=== PATIENT | male | born 1985 | race Caucasian/White ===

== ENCOUNTER 2024-07-30 08:26 | Inpatient (IN) | payer OTHER ==
--- NOTE | 2024-07-30 08:36 | ED ---
General Adult HPI - General Stated complaint: Seizure Time Seen by Provider: 07/30/24 08:30 Source: patient, EMS, RN notes reviewed Mode of arrival: EMS Limitations: no limitations - History of Present Illness Initial comments: 39-year-old male presents emergency department via EMS with chief complaint of a seizure. Patient is known alcoholic he drinks 2 to 3/5/day per patient states that he has had seizures in the past typically when he has not drank he states he drank too fast yesterday states he still feels like he is withdrawing currently. He had a witnessed seizure by friend at home patient does state that he believes he struck his head on a coffee table. Patient denies any lacerations he has pain in the left side of his face. Patient denies any current medications he does admit to nausea and upset stomach, mild abdominal pain. Denies chest pain or shortness of breath. Patient reportedly had 2- minute long seizure tonic-clonic and was postictal upon EMS arrival - Related Data Allergies Allergy/AdvReac Type Severity Reaction Status Date / Time No Known Allergies Allergy Verified 07/30/24 08:35 Review of Systems ROS Statement: Those systems with pertinent positive or pertinent negative responses have been documented in the HPI. ROS Other: All systems not noted in ROS Statement are negative. General Exam Limitations: no limitations General appearance: alert, in no apparent distress Head exam: Present: atraumatic, normocephalic, normal inspection Eye exam: Present: normal appearance, PERRL, EOMI. Absent: scleral icterus, conjunctival injection, periorbital swelling ENT exam: Present: mucous membranes moist, TM's normal bilaterally, normal external ear exam, other (Mild left facial tenderness and swelling noted). Absent: normal oropharynx (Condition) Neck exam: Present: normal inspection, full ROM. Absent: tenderness, meningismus, lymphadenopathy Respiratory exam: Present: normal lung sounds bilaterally. Absent: respiratory distress, wheezes, rales, rhonchi, stridor Cardiovascular Exam: Present: regular rate, normal rhythm, normal heart sounds. Absent: systolic murmur, diastolic murmur, rubs, gallop, clicks GI/Abdominal exam: Present: soft, normal bowel sounds. Absent: distended, tenderness, guarding, rebound, rigid Neurological exam: Present: alert, oriented X3, CN II-XII intact, reflexes normal. Absent: motor sensory deficit Skin exam: Present: warm, dry, intact, normal color. Absent: rash Course Vital Signs 07/30/24 07/30/24 07/30/24 08:36 09:35 11:02 Temperature 99 F Pulse Rate 101 H 116 H 112 H Respiratory 18 18 16 Rate Blood Pressure 163/120 164/118 155/136 O2 Sat by Pulse 97 97 96 Oximetry Medical Decision Making - Medical Decision Making Was pt. sent in by a medical professional or institution (, PA, LOCATION WORKER, urgent care, hospital, or group home...) When possible be specific @ -No Did you speak to anyone other than the patient for history (EMS, parent, family, police, friend...)? What history was obtained from this source @ -No Did you review nursing and triage notes (agree or disagree)? Why? @ -I reviewed and agree with nursing and triage notes Were old charts reviewed (outside hosp., previous admission, EMS record, old EKG, old radiological studies, urgent care reports/EKG's, group home records)? Report findings @ -No old charts were reviewed Differential Diagnosis (chest pain, altered mental status, abdominal pain women, abdominal pain men, vaginal bleeding, weakness, fever, dyspnea, syncope, headache, dizziness, GI bleed, back pain, seizure, CVA, palpatations, mental health, musculoskeletal)? @ -Differential Seizure: Recurrent seizure disorder, febrile seizure, alcohol withdrawal, stimulants, meningitis, encephalitis, intercranial hemorrhage, intracranial tumor, stroke, eclampsia, thyrotoxicosis, hypocalcemia, hyponatremia, hypernatremia, hypomagn esemia, psychogenic, this is not meant to be an all-inclusive list. EKG interpreted by me (3pts min.). @ -As above X-rays interpreted by me (1pt min.). @ -None done CT interpreted by me (1pt min.). @ -CT brain, C-spine showing no acute intracranial hemorrhage, mass effect or cervical fracture Neck CT facial bones soft tissue swelling no acute fracture U/S interpreted by me (1pt. min.). @ -None done What testing was considered but not performed or refused? (CT, X-rays, U/S, labs)? Why? @ -None What meds were considered but not given or refused? Why? @ -None Did you discuss the management of the patient with other professionals (professionals i.e. , PA, LOCATION WORKER, lab, RT, psych nurse, psychotherapist social worker, application performance engineer, teacher, consular officer, immigration case manager)? Give summary @ -EM for admission Was smoking cessation discussed for >3mins.? @ -No Was critical care preformed (if so, how long)? @ -No Were there social determinants of health that impacted care today? How? (Homelessness, low income, unemployed, alcoholism, drug addiction, transportation, low edu. Level, literacy, decrease access to med. care, fpc, rehab)? @ -No Was there de-escalation of care discussed even if they declined (Discuss DNR or withdrawal of care, Hospice)? DNR status @ -No What co-morbidities impacted this encounter? (DM, HTN, Smoking, COPD, CAD, Cancer, CVA, ARF, Chemo, Hep., AIDS, mental health diagnosis, sleep apnea, morbid obesity)? @ -Alcohol abuse with Was patient admitted / discharged? Hospital course, mention meds given and route, prescriptions, significant lab abnormalities, going to OR and other pertinent info. @ -Admitted patient presented after seizure at home from alcohol withdrawal. Patient's alcohol level 68 patient drinks 2 to 3/5/day patient has received multiple doses of Ativan still tremulous and having withdrawal symptoms. Patient will be admitted Undiagnosed new problem with uncertain prognosis? @ -No Drug Therapy requiring intensive monitoring for toxicity (Heparin, Nitro, Insulin, Cardizem)? @ -No Were any procedures done? @ -No Diagnosis/symptom? @ -Alcohol withdrawal seizure, alcohol abuse Acute, or Chronic, or Acute on Chronic? @ -Acute Uncomplicated (without systemic symptoms) or Complicated (systemic symptoms)? @ -Complicated Side effects of treatment? @ -No Exacerbation, Progression, or Severe Exacerbation? @ -No Poses a threat to life or bodily function? How? (Chest pain, USA, IA, pneumonia, PE, COPD, DKA, ARF, appy, cholecystitis, CVA, Diverticulitis, Homicidal, Suic idal, threat to staff... and all critical care pts) @ -Yes alcohol withdrawal seizure - Lab Data Result diagrams: 07/30/24 08:44 07/30/24 08:44 Lab Results 07/30/24 07/30/24 Range/Units 08:44 08:44 WBC 6.6 (3.8-10.6) k/uL RBC 5.56 (4.30-5.90) m/uL Hgb 16.9 (13.0-17.5) gm/dL Hct 48.4 (39.0-53.0) % MCV 87.1 (80.0-100.0) fL MCH 30.3 (25.0-35.0) pg MCHC 34.8 (31.0-37.0) g/dL RDW 13.7 (11.5-15.5) % Plt Count 276 (150-450) k/uL MPV 7.1 Neutrophils % 67 % Lymphocytes % 23 % Monocytes % 6 % Eosinophils % 2 % Basophils % 1 % Neutrophils # 4.4 (1.3-7.7) k/uL Lymphocytes # 1.5 (1.0-4.8) k/uL Monocytes # 0.4 (0-1.0) k/uL Eosinophils # 0.1 (0-0.7) k/uL Basophils # 0.1 (0-0.2) k/uL Sodium 141 (137-145) mmol/L Potassium 4.0 (3.5-5.1) mmol/L Chloride 106 (98-107) mmol/L Carbon Dioxide 25 (22-30) mmol/L Anion Gap 10 mmol/L BUN 11 (9-20) mg/dL Creatinine 0.82 (0.66-1.25) mg/dL Est GFR (CKD-EPI)AfAm >90 (>60 ml/min/1.73 sqM) Est GFR (CKD-EPI)NonAf >90 (>60 ml/min/1.73 sqM) Glucose 148 H (74-99) mg/dL Calcium 9.8 (8.4-10.2) mg/dL Magnesium 1.8 (1.6-2.3) mg/dL Total Bilirubin 0.7 (0.2-1.3) mg/dL AST 394 H (17-59) U/L ALT 601 H (4-49) U/L Alkaline Phosphatase 101 (38-126) U/L Total Protein 7.8 (6.3-8.2) g/dL Albumin 4.9 (3.5-5.0) g/dL Lipase 61 (23-300) U/L Serum Alcohol 68 mg/dL Disposition Clinical Impression: Alcoholic intoxication, Alcohol withdrawal seizure Disposition: ADMITTED IP TO THIS HOSP Condition: Serious Referrals: None,Stated [Primary Care Provider] - 1-2 days Time of Disposition: 11:14
[2024-07-30] MEDS: SODIUM CHLORIDE 0.9% 1,000 ML IV STA (08:43)
[2024-07-30] MEDS: ONDANSETRON 4 MG/2 ML VIAL IVP STA ×2 (08:44→10:54)
[2024-07-30] MEDS: LORazepam 2 MG/ML INJ IV STA ×4 (08:44→20:20)
[2024-07-30 09:00] LABS: Basophils # (A) 0.1 k/uL (0-0.2); Basophils % (A) 1 %; Eosinophils # (A) 0.1 k/uL (0-0.7); Eosinophils % (A) 2 %; HCT 48.4 % (39.0-53.0); HGB 16.9 gm/dL (13.0-17.5); Lymphocytes # (A) 1.5 k/uL (1.0-4.8); Lymphocytes % (A) 23 %; MCH 30.3 pg (25.0-35.0); MCHC 34.8 g/dL (31.0-37.0); MCV 87.1 fL (80.0-100.0); Mean Platelet Volume 7.1; Monocytes # (A) 0.4 k/uL (0-1.0); Monocytes % (A) 6 %; Neutrophils # (A) 4.4 k/uL (1.3-7.7); Neutrophils % (A) 67 %; Platelet Count 276 k/uL (150-450); RBC 5.56 m/uL (4.30-5.90); RDW 13.7 % (11.5-15.5); WBC 6.6 k/uL (3.8-10.6)
[2024-07-30 09:06] LABS: ALT 601 U/L (4-49); AST 394 U/L (17-59); African American GFR (CKD) >90 (>60 ml/min/1.73 sqM); Albumin 4.9 g/dL (3.5-5.0); Alcohol 68 mg/dL; Alkaline Phosphatase 101 U/L (38-126); Anion Gap 10 mmol/L; Blood Urea Nitrogen 11 mg/dL (9-20); Calcium 9.8 mg/dL (8.4-10.2); Carbon Dioxide 25 mmol/L (22-30); Chloride 106 mmol/L (98-107); Glucose 148 mg/dL (74-99); Lipase 61 U/L (23-300); Magnesium 1.8 mg/dL (1.6-2.3); Non-African American GFR(CKD) >90 (>60 ml/min/1.73 sqM); Sodium 141 mmol/L (137-145); Total Bilirubin 0.7 mg/dL (0.2-1.3); Total Protein 7.8 g/dL (6.3-8.2)
--- NOTE | 2024-07-30 10:15 | CT ---
EXAMINATION TYPE: CT brain paolaine wo con DATE OF EXAM: 07/30/2024 COMPARISON: None HISTORY: TRAUMA/SEIZURE CT DLP: 846.4 mGycm, Automated exposure control for dose reduction was used. CONTRAST: Patient injected with 0 mL of Isovue 300. CT of the brain is performed utilizing 3 mm thick sections through the posterior fossa and 3 mm thick sections through the remaining calvarium. Study is performed within 24 hours of arrival to the hospital. No abnormal hyperdensity is present to suggest an acute intracranial hemorrhage. No mass lesion is evident. No acute infarcts are evident. Ventricles and sulci are appropriate for the patient age. Paranasal sinuses and mastoid air cells within the [id number] are clear. IMPRESSIONS: 1. No acute intracranial process. Follow-up MRI can be performed as clinically indicated. CT cervical spine. COMPARISON: None CT of the cervical spine is performed in the axial plane at 2 mm thick sections. Reconstructed image s in the coronal, and sagittal plane are reviewed on the computer. No acute fractures are evident. Vertebral body alignment is normal. Disc heights are preserved. Vertebral body heights are preserved. No spinal canal stenosis is evident. No neural foraminal stenosis is evident. IMPRESSION: 1. No acute osseous abnormality cervical spine [facility], Workstation: [facility], 07/30/2024 10:13 AM
[2024-07-30] MEDS: KETOROLAC 15 MG/ML 1 ML VIAL IVP STA ×2 (10:54→11:30)
--- NOTE | 2024-07-30 11:08 | CT ---
EXAMINATION TYPE: CT facial bones wo con DATE OF EXAM: 07/30/2024 COMPARISON: None HISTORY: TRAUMA/SEIZURE CT DLP: 408.6 mGycm CONTRAST: 0 mL of Isovue 300 The paranasal sinuses are examined in the axial plane at 2 mm thick sections. Reconstructed images i n the coronal plane were obtained. There is dental amalgam scatter artifact The maxillary sinuses are clear. The ethmoid air cells are clear. The sphenoid sinuses are clear. The frontal sinuses are clear. The septum is evaluated. There is septal deviation to the right. The ostiomeatal units are patent. Mandible and maxilla appear intact. Maxillary spine is intact. Temporomandibular junctions are unrema rkable. Maxillary sinus dugan are intact. Greater wings of the sphenoid are normal. Nasal bones are n ormal. Zygomatic arches are intact. IMPRESSION: 1. No acute fractures. [facility], Workstation: [facility], 07/30/2024 11:05 AM
[2024-07-30] MEDS ORDERED: NALOXONE 0.4 MG/ML 1 ML VIAL IV PRN (11:14)
[2024-07-30] MEDS ORDERED: ONDANSETRON 4 MG/2 ML VIAL IVP PRN (11:14)
[2024-07-30] MEDS: SODIUM CHLORIDE 0.9% 1,000 ML IV SCH (11:33)
[2024-07-30] MEDS: LORazepam 2 MG/ML INJ IV PRN ×3 (13:12→19:47)
[2024-07-30] MEDS: HYDROcodone/APAP 5-325MG 1 EACH TAB PO PRN (13:52)
[2024-07-30] MEDS: chlordiazePOXIDE 25 MG CAP PO SCH (13:53)
[2024-07-30] MEDS ORDERED: TEMAZEPAM 15 MG CAP PO PRN (15:09)
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
--- NOTE | 2024-07-30 15:41 | XR ---
EXAMINATION TYPE: XR chest 1V portable DATE OF EXAM: 07/30/2024 3:35 PM CLINICAL INDICATION: Male, 39 years old with history of chf; [facility] COMPARISON: None TECHNIQUE: XR chest 1V portable Frontal view of the chest. FINDINGS: Lungs/Pleura: There is no evidence of pleural effusion, focal consolidation, or pneumothorax. Pulmonary vascularity: Unremarkable. Heart/mediastinum: Cardiomediastinal silhouette is unremarkable. Musculoskeletal: No acute osseous pathology. IMPRESSION: No acute cardiopulmonary disease/process. [facility], , 07/30/2024 3:39 PM
[2024-07-30] MEDS: cloNIDine HCL 0.1 MG TAB PO SCH (15:49)
[2024-07-30] MEDS: levETIRAcetam 500 MG TAB PO SCH (15:53)
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
[2024-07-30] MEDS: diphenhydrAMINE 50 MG/ML 1 ML VIAL IVP STA (19:49)
[2024-07-30] MEDS: HYDROmorphone 0.5 MG/0.5 ML SYRINGE IVP PRN (19:53)
[2024-07-30] MEDS: DEXMEDETOMIDINE/0.9% NACL(PMX) 400 MCG in EMPTY BAG 1 BAG IV SCH (21:19)
[2024-07-30] MEDS: HEPARIN SODIUM,PORCINE 5,000 UNIT/ML 1 ML VIAL SQ SCH (21:52)
[2024-07-30] MEDS: HALOPERIDOL LACTATE 5 MG/ML 1 ML VIAL IM STA ×2 (22:39)
[2024-07-30 23:24] LABS: Glucose,Whole Blood 111 mg/dL (70-110)
--- NOTE | 2024-07-31 02:22 | HP ---
HISTORY AND PHYSICAL CHIEF COMPLAINT: Seizure and alcohol. HISTORY OF PRESENT ILLNESS: This is a 39-year-old gentleman, who had significant alcohol issues, admitted with seizures. The patient also was complaining of pain in the head and face, but CT scan did not show acute abnormality. There is no history of any fever, rigors, or chills at this time. PAST MEDICAL HISTORY: Reviewed include hypertension, myocardial infarction, and seizure. Rest of the history and rest of the chart is also reviewed. HOME MEDICATIONS: Reviewed, none. ALLERGIES: None. FAMILY HISTORY: No history of heart disease or strokes. SOCIAL HISTORY: History of vaping, alcohol. REVIEW OF SYSTEMS: A 14-point review is negative as mentioned earlier. PHYSICAL EXAMINATION: VITAL SIGNS: Pulse is 109, blood pressure 149/90, respirations 18. CHEST: a few scattered rhonchi. ABDOMEN: Soft, nontender. LEGS: No edema. NERVOUS SYSTEM: Nonfocal. SKIN: No ulcer, rash, or bleeding. JOINTS: No active deforming arthropathy. LABORATORY DATA: Reviewed. ASSESSMENT: 1. Acute alcohol intoxication. 2. Seizure disorder. 3. Acute alcoholic hepatitis. 4. Hypertension. 5. History of myocardial infarction. RECOMMENDATIONS AND DISCUSSION: This is a 39-year-old gentleman, who presented with multiple complex medical issues, we will monitor the patient closely and recommend to continue current medications recommend Neurology consultation. We will initiate Keppra and continue to monitor. Prognosis guarded. Further recommendations to follow. See orders for further details, rehab recommendations. MMODL / IJN: [id number] / MTDD
--- NOTE | 2024-07-31 08:37 | P.PN ---
Subjective Progress Note Date: 07/31/24 Patient is impulsive today, agitated, nursing requesting sitter for patient at bedside. Patient was started on Precedex last night due to increasing Ativan requirement. Apparently patient refused p.o. medication in the form of Librium. Gen: In NAD, non-toxic HEENT: normocephalic, atraumatic, hearing acuity is intant, mucous membranes moist CVS: perfusing all extremities well, no pitting edema, Respiratory: symmetric chest expansion, no accessory muscle use, GI: soft, NTTP, ND, : no suprapubic tenderness, no CVA tenderness MSK/Derm: no rashes, cyanosis Neuro: CN II-XII intact, no motor weakness, Psych: cooperative, euthymic mood, judgment and insight is intact Hospital course: 39-year-old man with a medical history of alcohol abuse disorder with dependence and history of severe alcohol withdrawal complicated by seizures and cardiac arrest presented for alcohol intoxication and impending withdrawal. In the emergency room, patient was afebrile, 165/108, heart rate 105, 95% on room air. CBC was unremarkable. Basic metabolic panel is unremarkable. Liver function tests remarkable for ALT of 601, AST of 394. Serum alcohol level was 68. Lipase was 61. Head/cervical spine CT showed no acute osseous abnormalities. Face CT showed no acute fractures. EKG shows normal sinus rhythm, right axis deviation, S1Q3T3 pattern, good R wave progression. Case was discussed with the emergency room physician and I evaluated this patient in the emergency room, and determined that it would be best to monitor this patient in the intensive care unit given his history of severe alcohol withdrawal. I subsequently discussed this case with the soaker on-call who agreed with my assessment. Patient will be admitted to the intensive care unit for alcohol withdrawal monitoring. Assessment/plan: Alcohol withdrawal syndrome with dependence, seizures Alcohol intoxication -Admitted patient to the intensive care unit on telemetry -CIOH protocol with Ativan as needed -Continue Librium 50 mg 3 times daily -Continue Precedex drip, wean as tolerated -Seizure precautions, aspiration precautions -Cessation counseling were provided post withdrawal -thiamine daily, folic acid daily, multivitamin daily -Clonidine as needed for withdrawal and blood pressure Patient is full code DVT prophylaxis with Heparin every 12 hours Objective - Vital Signs Vital signs: Vital Signs Temp 98.0 F 07/31/24 04:00 Pulse 64 07/31/24 07:00 Resp 21 07/31/24 07:00 BP 113/77 07/31/24 07:00 Pulse Ox 94 L 07/31/24 07:00 FiO2 Intake & Output 07/30/24 07/31/24 07/31/24 18:59 06:59 18:59 Intake Total 75 584.640 75 Output Total 200 Balance 75 384.640 75 Weight 81.647 kg 81.64 kg Intake: Intake, IV Titration 75 584.640 75 Amount Dexmedetomidine/0.9% NaCl 59.640 (Pmx) 400 mcg In Empty Bag 1 bag @ 0.2 MCG/KG/HR 4.082 mls/hr IV .Q24H [facility] Rx#:[id number] Sodium Chloride 0.9% 1, 75 525 75 000 ml @ 75 mls/hr IV . [id number] [facility] Rx#:[id number] Output: Urine 200 - Labs CBC & Chem 7: 07/30/24 08:44 07/30/24 08:44 Labs: Abnormal Lab Results - Last 24 Hours (Table) 07/30/24 07/30/24 Range/Units 08:44 23:22 Glucose 148 H (74-99) mg/dL POC Glucose (mg/dL) 111 H (70-110) mg/dL AST 394 H (17-59) U/L ALT 601 H (4-49) U/L
[2024-07-31] MEDS: THIAMINE 100 MG TAB PO SCH (09:09)
[2024-07-31] MEDS: PANTOPRAZOLE 40 MG/10 ML VIAL IV SCH (09:09)
[2024-07-31] MEDS: MULTIVITAMINS, THERA 1 EACH TAB PO SCH (09:17)
[2024-07-31] MEDS: FOLIC ACID 1 MG TAB PO SCH (09:17)
[2024-07-31] MEDS: HALOPERIDOL LACTATE 5 MG/ML 1 ML VIAL IVP PRN (11:29)
--- NOTE | 2024-07-31 12:02 | P.PN ---
Subjective Progress Note Date: 07/31/24 Principal diagnosis: Alcohol withdrawal. This is a 39-year-old white male known history of alcoholism, drinks about 2 to 3/5/day, patient had earlier today a witnessed alcohol withdrawal induced seizure. Patient had similar seizures in the past, and they usually happen when he does not drink for a few days. Apparently the patient had a witnessed seizure by his friend at home and he believes that he struck his head on a coffee table. No injuries were noted based on the ER workup. Apparently the patient had a 2-minute long seizure with tonic clonic contractions. And when he arrived to the ER he was postictal patient is not a great historian, however considering the presentation, I was asked to admit the patient to the ICU he has been receiving Ativan in the ER with minimal effect, and the decision will be to monitor in the ICU instead of handing on the floor. Labs in the ER were basically unremarkable. He did have elevated liver enzymes with AST of 394 ALT of 601 serum alcohol on presentation was 68 which is toxic. Progress note dated July 31, 2024. This is a 39-year-old male has a history of heavy alcohol abuse. The patient was admitted to the hospital, on July 30, and was transferred to the intensive care unit, on July 30. The patient has a history of alcohol abuse, and possible alcohol withdrawal seizures. He was transferred to the intensive care unit for further monitoring and management. He is seen today in room 256. He is on room air. He is getting saline at 75 cc an hour. He is also getting Precedex at 0.4 mcg/kg/h. We are going to try to transition him to Ativan if possible. In addition, we may have to use Librium, Seroquel, and/or Haldol. No new labs today. The labs from yesterday, have been reviewed. Objective - Vital Signs Vital signs: Vital Signs Temp 96.8 F L 07/31/24 08:00 Pulse 71 07/31/24 10:30 Resp 22 07/31/24 10:30 BP 124/95 07/31/24 11:15 Pulse Ox 97 07/31/24 10:30 FiO2 Intake & Output 07/30/24 07/31/24 07/31/24 18:59 06:59 18:59 Intake Total 75 584.640 650.033 Output Total 200 0 Balance 75 384.640 650.033 Weight 81.647 kg 81.64 kg Intake: IV 225 Sodium Chloride 0.9% 1, 225 000 ml @ 75 mls/hr IV . [id number] [facility] Rx#:[id number] Intake, IV Titration 75 584.640 103.033 Amount Dexmedetomidine/0.9% NaCl 59.640 28.033 (Pmx) 400 mcg In Empty Bag 1 bag @ 0.2 MCG/KG/HR 4.082 mls/hr IV .Q24H [facility] Rx#:[id number] Sodium Chloride 0.9% 1, 75 525 75 000 ml @ 75 mls/hr IV . [id number] [facility] Rx#:[id number] Oral 322 Output: Urine 200 0 Other: Voiding Method Urinal # Voids 1 # Bowel Movements 1 - Exam No acute distress, oriented 3. Currently on room air. HEENT examination is grossly unremarkable. Mucous membranes are moist. No oral lesions. Neck supple. Full range of motion. No adenopathy thyromegaly or neck vein distention. Cardiovascular examination reveals regular rhythm rate. S1-S2 normal. No S3 or S4. No discernible murmur noted. Lungs reveal clear breath sounds. Breath sounds are equal bilaterally. No adventitious lung sounds including wheezes rhonchi or crackles. Abdomen soft bowel sounds are heard. No masses or tenderness. Extremities are intact. No cyanosis clubbing or edema. Skin is without rash or lesion. Neurologic examination is brief but nonfocal. - Labs CBC & Chem 7: 07/30/24 08:44 07/30/24 08:44 Labs: Abnormal Lab Results - Last 24 Hours (Table) 07/30/24 Range/Units 23:22 POC Glucose (mg/dL) 111 H (70-110) mg/dL Assessment and Plan Assessment: Acute alcohol intoxication. Possible alcohol withdrawal seizure. Postictal state. History of alcoholism. Acute alcoholic hepatitis. Plan: Plan dated July 31, 2024. The patient remains critically ill in the intensive care unit, room 256. The patient was admitted with acute alcohol withdrawal, and alcoholic seizures. The patient is on room air. The patient is getting saline at 75 cc an hour. The patient continues on dexmedetomidine 0.4 mcg/kg/h. We may add some additional medication such as Ativan, Haldol, and Seroquel. Labs, x-rays, and medications are reviewed. The patient's overall prognosis remains guarded. We will continue to follow. Time with Patient: Greater than 30
[2024-07-31] MEDS: LORazepam 0.5 MG TAB PO PRN (17:05)
[2024-08-01] MEDS: LORazepam 1 MG TAB PO PRN (04:05)
[2024-08-01 06:03] LABS: Basophils % (A) 1 %; Eosinophils # (A) 0.2 k/uL (0-0.7); Eosinophils % (A) 4 %; HCT 43.1 % (39.0-53.0); Lymphocytes # (A) 1.3 k/uL (1.0-4.8); Lymphocytes % (A) 27 %; MCH 29.5 pg (25.0-35.0); MCHC 32.6 g/dL (31.0-37.0); MCV 90.6 fL (80.0-100.0); Mean Platelet Volume 7.3; Monocytes # (A) 0.3 k/uL (0-1.0); Monocytes % (A) 7 %; Neutrophils # (A) 2.8 k/uL (1.3-7.7); Neutrophils % (A) 59 %; Platelet Count 185 k/uL (150-450); RBC 4.76 m/uL (4.30-5.90); RDW 13.3 % (11.5-15.5); WBC 4.7 k/uL (3.8-10.6)
[2024-08-01 06:13] LABS: African American GFR (CKD) >90 (>60 ml/min/1.73 sqM); Anion Gap 4 mmol/L; Blood Urea Nitrogen 11 mg/dL (9-20); Calcium 8.8 mg/dL (8.4-10.2); Carbon Dioxide 28 mmol/L (22-30); Chloride 105 mmol/L (98-107); Glucose 131 mg/dL (74-99); Magnesium 1.9 mg/dL (1.6-2.3); Non-African American GFR(CKD) >90 (>60 ml/min/1.73 sqM); Potassium 3.8 mmol/L (3.5-5.1); Sodium 137 mmol/L (137-145)
[2024-08-01] MEDS ORDERED: Magnesium Replacement Protocol 1 EACH MISC MISCELLANE PRN (06:29)
[2024-08-01] MEDS ORDERED: Potassium Replacement Protocol 1 EACH MISC MISCELLANE PRN (06:29)
[2024-08-01] MEDS: MAGNESIUM SULFATE-D5W PMX 1 GM in DEXTROSE/WATER 1 100ML.BAG IVPB ONE (06:39)
[2024-08-01] MEDS: POTASSIUM CHLORIDE ER 20 MEQ TAB.ER PO SCH (06:39)
[2024-08-01] MEDS: diphenhydrAMINE 25 MG CAP PO PRN (09:31)
--- NOTE | 2024-08-01 12:01 | P.PN ---
Subjective Progress Note Date: 08/01/24 Patient is doing much better today. ETOH withdrawal controlled on librium, ativan PRN. Pt is stable for step down to floor. Gen: In NAD, non-toxic HEENT: normocephalic, atraumatic, hearing acuity is intant, mucous membranes moist CVS: perfusing all extremities well, no pitting edema, Respiratory: symmetric chest expansion, no accessory muscle use, GI: soft, NTTP, ND, : no suprapubic tenderness, no CVA tenderness MSK/Derm: no rashes, cyanosis Neuro: CN II-XII intact, no motor weakness, Psych: cooperative, euthymic mood, judgment and insight is intact Hospital course: 39-year-old man with a medical history of alcohol abuse disorder with dependence and history of severe alcohol withdrawal complicated by seizures and cardiac arrest presented for alcohol intoxication and impending withdrawal. In the emergency room, patient was afebrile, 165/108, heart rate 105, 95% on room air. CBC was unremarkable. Basic metabolic panel is unremarkable. Liver function tests remarkable for ALT of 601, AST of 394. Serum alcohol level was 68. Lipase was 61. Head/cervical spine CT showed no acute osseous abnormalities. Face CT showed no acute fractures. EKG shows normal sinus rhythm, right axis deviation, S1Q3T3 pattern, good R wave progression. Case was discussed with the emergency room physician and I evaluated this patient in the emergency room, and determined that it would be best to monitor this patient in the intensive care unit given his history of severe alcohol withdrawal. I subsequently discussed this case with the blower operator on-call who agreed with my assessment. Patient will be admitted to the intensive care unit for alcohol withdrawal monitoring. Assessment/plan: Alcohol withdrawal syndrome with dependence, seizures Alcohol intoxication -Admitted patient to the intensive care unit on telemetry -[facility] protocol with Ativan as needed -Continue Librium 50 mg 3 times daily -Precedex off since 07/31 -Seizure precautions, aspiration precautions -Cessation counseling were provided post withdrawal -thiamine daily, folic acid daily, multivitamin daily -Clonidine as needed for withdrawal and blood pressure Patient is full code DVT prophylaxis with Heparin every 12 hours Objective - Vital Signs Vital signs: Vital Signs Temp 97.4 F L 08/01/24 09:00 Pulse 71 08/01/24 09:00 Resp 22 08/01/24 09:00 BP 124/91 08/01/24 09:00 Pulse Ox 95 08/01/24 09:00 FiO2 Intake & Output 07/31/24 08/01/24 08/01/24 18:59 06:59 18:59 Intake Total 1072.577 777 340 Output Total 0 100 0 Balance 1072.577 677 340 Weight 90.6 kg Intake: IV 225 0 Sodium Chloride 0.9% 1, 225 0 000 ml @ 75 mls/hr IV . [id number] [facility] Rx#:[id number] Intake, IV Titration 103.577 Amount Dexmedetomidine/0.9% NaCl 28.577 (Pmx) 400 mcg In Empty Bag 1 bag @ 0.2 MCG/KG/HR 4.082 mls/hr IV .Q24H [facility] Rx#:[id number] Sodium Chloride 0.9% 1, 75 000 ml @ 75 mls/hr IV . [id number] [facility] Rx#:[id number] Oral 744 [id number] 340 Output: Urine 0 100 0 Other: Voiding Method Urinal Urinal # Voids 1 1 # Bowel Movements 1 - Labs CBC & Chem 7: 08/01/24 05:33 08/01/24 05:33 Labs: Abnormal Lab Results - Last 24 Hours (Table) 08/01/24 Range/Units 05:33 Glucose 131 H (74-99) mg/dL
--- NOTE | 2024-08-01 12:39 | P.PN ---
Subjective Progress Note Date: 08/01/24 Principal diagnosis: Alcohol withdrawal. This is a 39-year-old white male known history of alcoholism, drinks about 2 to 3/5/day, patient had earlier today a witnessed alcohol withdrawal induced seizure. Patient had similar seizures in the past, and they usually happen when he does not drink for a few days. Apparently the patient had a witnessed seizure by his friend at home and he believes that he struck his head on a coffee table. No injuries were noted based on the ER workup. Apparently the patient had a 2-minute long seizure with tonic clonic contractions. And when he arrived to the ER he was postictal patient is not a great historian, however considering the presentation, I was asked to admit the patient to the ICU he has been receiving Ativan in the ER with minimal effect, and the decision will be to monitor in the ICU instead of handing on the floor. Labs in the ER were basically unremarkable. He did have elevated liver enzymes with AST of 394 ALT of 601 serum alcohol on presentation was 68 which is toxic. Progress note dated July 31, 2024. This is a 39-year-old male has a history of heavy alcohol abuse. The patient was admitted to the hospital, on July 30, and was transferred to the intensive care unit, on July 30. The patient has a history of alcohol abuse, and possible alcohol withdrawal seizures. He was transferred to the intensive care unit for further monitoring and management. He is seen today in room 256. He is on room air. He is getting saline at 75 cc an hour. He is also getting Precedex at 0.4 mcg/kg/h. We are going to try to transition him to Ativan if possible. In addition, we may have to use Librium, Seroquel, and/or Haldol. No new labs today. The labs from yesterday, have been reviewed. Progress note dated August 01, 2024. 39-year-old male seen today in room 256. He is doing much better. He is on room air. The patient is not receiving any IV fluids. In my opinion, the patient is stable for transfer to the general medical floor. The nurses do agree with this assessment. Current labs include a white count 4.7, hemoglobin 14, hematocrit 43.1, and a normal platelet count. Sodium 137, potassium 3.8, chlorides 105, CO2 28, BUN 11, creatinine 0.79. Glucose 131. Calcium 8.8. Magnesium 1.9. Objective - Vital Signs Vital signs: Vital Signs Temp 97.4 F L 08/01/24 09:00 Pulse 71 08/01/24 09:00 Resp 22 08/01/24 09:00 BP 124/91 08/01/24 09:00 Pulse Ox 95 08/01/24 09:00 FiO2 Intake & Output 07/31/24 08/01/24 08/01/24 18:59 06:59 18:59 Intake Total 1072.577 777 340 Output Total 0 100 0 Balance 1072.577 677 340 Weight 90.6 kg Intake: IV 225 0 Sodium Chloride 0.9% 1, 225 0 000 ml @ 75 mls/hr IV . [id number] [facility] Rx#:[id number] Intake, IV Titration 103.577 Amount Dexmedetomidine/0.9% NaCl 28.577 (Pmx) 400 mcg In Empty Bag 1 bag @ 0.2 MCG/KG/HR 4.082 mls/hr IV .Q24H [facility] Rx#:[id number] Sodium Chloride 0.9% 1, 75 000 ml @ 75 mls/hr IV . [id number] [facility] Rx#:[id number] Oral [id number] Output: Urine 0 100 0 Other: Voiding Method Urinal Urinal # Voids 1 1 # Bowel Movements 1 - Exam No acute distress, oriented 3. Currently on room air. HEENT examination is grossly unremarkable. Mucous membranes are moist. No oral lesions. Neck supple. Full range of motion. No adenopathy thyromegaly or neck vein distention. Cardiovascular examination reveals regular rhythm rate. S1-S2 normal. No S3 or S4. No discernible murmur noted. Lungs reveal clear breath sounds. Breath sounds are equal bilaterally. No adventitious lung sounds including wheezes rhonchi or crackles. Abdomen soft bowel sounds are heard. No masses or tenderness. Extremities are intact. No cyanosis clubbing or edema. Skin is without rash or lesion. Neurologic examination is brief but nonfocal. - Labs CBC & Chem 7: 08/01/24 05:33 08/01/24 05:33 Labs: Abnormal Lab Results - Last 24 Hours (Table) 08/01/24 Range/Units 05:33 Glucose 131 H (74-99) mg/dL Assessment and Plan Assessment: Acute alcohol intoxication. Possible alcohol withdrawal seizure. Postictal state. History of alcoholism. Acute alcoholic hepatitis. Plan: Plan dated July 31, 2024. The patient remains critically ill in the intensive care unit, room 256. The patient was admitted with acute alcohol withdrawal, and alcoholic seizures. The patient is on room air. The patient is getting saline at 75 cc an hour. The patient continues on dexmedetomidine 0.4 mcg/kg/h. We may add some additional medication such as Ativan, Haldol, and Seroquel. Labs, x-rays, and medications are reviewed. The patient's overall prognosis remains guarded. We will continue to follow. Plan dated August 01, 2024. The patient is seen in room 256. He has no specific complaints. He is calm, resting comfortably in bed. He is not receiving any supplemental oxygen. No IV fluids. In my opinion, the patient could be transferred to the general medical floor. All labs, x-rays, and medications are reviewed. Prognosis is guarded. The patient is counseled about the importance of not drinking again. Time with Patient: Less than 30
--- NOTE | 2024-08-02 12:22 | P.PN ---
Subjective Progress Note Date: 08/02/24 Hospital Course: 39-year-old man with a medical history of alcohol abuse disorder with dependence and history of severe alcohol withdrawal complicated by seizures and cardiac arrest presented for alcohol intoxication and impending withdrawal. In the emergency room, patient was afebrile, 165/108, heart rate 105, 95% on room air. CBC was unremarkable. Basic metabolic panel is unremarkable. Liver function tests remarkable for ALT of 601, AST of 394. Serum alcohol level was 68. Lipase was 61. Head/cervical spine CT showed no acute osseous abnormalities. Face CT showed no acute fractures. EKG shows normal sinus rhythm, right axis deviation, S1Q3T3 pattern, good R wave progression. Patient initially admitted to medical ICU, now on regular floors. Continues to have severe alcohol withdrawals. Patient was also potentiated prior to coming to the hospital. Psychiatry has been consulted. Subjective: Patient seen and examined at bedside. Overnight patient was agitated. Pertinent positives and negatives as discussed above, a complete review of systems was performed and all other systems are negative. Vitals Signs Reviewed. General: Nontoxic, no distress, appears at stated age Derm: Warm, dry Head: Atraumatic, normocephalic, symmetric Eyes: EOMI, no lid lag, anicteric sclera Mouth: No lip lesion, mucus membranes moist Cardiovascular: S1S2 reg, no murmur Lungs: CTA bilateral, no rhonchi, no rales, no accessory muscle use Abdominal: Soft, nontender to palpation, no guarding, no appreciable organomegaly Ext: No gross muscle atrophy, no edema, no contractures Neuro: CN II-XI grossly intact, no focal neuro deficits Psych: Alert, oriented, appropriate affect Data Reviewed Today: Pertinent Labs: Magnesium 2 Imaging: No new imaging Assessment and Plan: Patient remains severely ill, needs close monitoring. Severe alcohol withdrawal Alcohol dependence Alcohol intoxication Transaminitis -Discussed management with ICU, continue as needed Ativan -On IV Ativan per CIWA score, monitor for sedation -Discontinue IV Valium scheduled -Continue Librium 50 mg 3 times daily, monitor for sedation -Okay to continue clonidine 0.1 twice daily -On Haldol 8 mg IV every 4 hours as needed -If continues use of Haldol, consider getting another EKG, QT not prolonged on admission -Patient was petitioned, will get psychiatry involved, consulted -Discontinued IV fluids -Thiamine 100 mg daily DVT ppx: Subcu heparin Code status: Full code Anticipated discharge place: Pending clinical course Anticipated discharge time: Pending clinical course Objective - Vital Signs Vital signs: Vital Signs Temp 98.4 F 08/02/24 04:00 Pulse 70 08/02/24 08:15 Resp 18 08/02/24 08:15 BP 117/74 08/02/24 08:15 Pulse Ox 97 08/02/24 08:15 FiO2 Intake & Output 08/01/24 08/02/24 08/02/24 18:59 06:59 18:59 Intake Total 1792 480 540 Output Total 0 Balance 1792 480 540 Weight 76.7 kg Intake: IV 0 Sodium Chloride 0.9% 1, 0 000 ml @ 75 mls/hr IV . [id number] [facility] Rx#:[id number] Oral 1792 480 540 Output: Urine 0 Other: Voiding Method Urinal Urinal Urinal # Voids 1 # Bowel Movements 1 - Labs CBC & Chem 7: 08/01/24 05:33 08/01/24 05:33
[2024-08-02] MEDS: HYDROcodone/APAP 5-325MG 1 EACH TAB PO PRN (13:14)
[2024-08-02] MEDS ORDERED: ACETAMINOPHEN TAB 325 MG TAB PO PRN (13:27)
[2024-08-02] MEDS: chlordiazePOXIDE 25 MG CAP PO STA (14:11)
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
--- NOTE | 2024-08-02 14:27 | P.PN ---
Subjective Progress Note Date: 08/02/24 This is a 39-year-old white male known history of alcoholism, drinks about 2 to 3/5/day, patient had earlier today a witnessed alcohol withdrawal induced seizure. Patient had similar seizures in the past, and they usually happen when he does not drink for a few days. Apparently the patient had a witnessed seizure by his friend at home and he believes that he struck his head on a coffee table. No injuries were noted based on the ER workup. Apparently the patient had a 2-minute long seizure with tonic clonic contractions. And when he arrived to the ER he was postictal patient is not a great historian, however considering the presentation, I was asked to admit the patient to the ICU he has been receiving Ativan in the ER with minimal effect, and the decision will be to monitor in the ICU instead of handing on the floor. Labs in the ER were basically unremarkable. He did have elevated liver enzymes with AST of 394 ALT of 601 serum alcohol on presentation was 68 which is toxic. Progress note dated July 31, 2024. This is a 39-year-old male has a history of heavy alcohol abuse. The patient was admitted to the hospital, on July 30, and was transferred to the intensive care unit, on July 30. The patient has a history of alcohol abuse, and possible alcohol withdrawal seizures. He was transferred to the intensive care unit for further monitoring and management. He is seen today in room 256. He is on room air. He is getting saline at 75 cc an hour. He is also getting Prec edex at 0.4 mcg/kg/h. We are going to try to transition him to Ativan if possible. In addition, we may have to use Librium, Seroquel, and/or Haldol. No new labs today. The labs from yesterday, have been reviewed. Progress note dated August 01, 2024. 39-year-old male seen today in room 256. He is doing much better. He is on room air. The patient is not receiving any IV fluids. In my opinion, the patient is stable for transfer to the general medical floor. The nurses do agree with this assessment. Current labs include a white count 4.7, hemoglobin 14, hematocrit 43.1, and a normal platelet count. Sodium 137, potassium 3.8, chlorides 105, CO2 28, BUN 11, creatinine 0.79. Glucose 131. Calcium 8.8. Magnesium 1.9. The patient is seen today August 02, 2024 in follow-up on the selective care unit. He is currently awake and alert in no acute distress. He is maintaining good O2 saturation in the 90s on room air. He is afebrile. Hemodynamically stable. Magnesium 2.0. He remains on the CIWA protocol. Heparin for DVT prophylaxis. teller head at the bedside. Objective - Vital Signs Vital signs: Vital Signs Temp 98.4 F 08/02/24 04:00 Pulse 74 08/02/24 12:00 Resp 18 08/02/24 12:00 BP 122/72 08/02/24 12:00 Pulse Ox 97 08/02/24 12:00 FiO2 Intake & Output 08/01/24 08/02/24 08/02/24 18:59 06:59 18:59 Intake Total 1792 480 540 Output Total 0 Balance 1792 480 540 Weight 76.7 kg Intake: IV 0 Sodium Chloride 0.9% 1, 0 000 ml @ 75 mls/hr IV . [id number] [facility] Rx#:[id number] Oral 1792 480 540 Output: Urine 0 Other: Voiding Method Urinal Urinal Urinal # Voids 1 # Bowel Movements 1 - Exam GENERAL EXAM: Alert, 39-year-old male, on room air, comfortable in no apparent distress. HEAD: Normocephalic. EYES: Normal reaction of pupils, equal size. NOSE: Clear with pink turbinates. THROAT: No erythema or exudates. NECK: No masses, no JVD. CHEST: No chest wall deformity. LUNGS: Equal air entry with no crackles, wheeze, rhonchi or dullness. CVS: S1 and S2 normal with no audible murmur, regular rhythm. ABDOMEN: No hepatosplenomegaly, normal bowel sounds, no guarding or rigidity. SPINE: No scoliosis or deformity SKIN: No rashes CENTRAL NERVOUS SYSTEM: No focal deficits, tone is normal in all 4 extremities. EXTREMITIES: There is no peripheral edema. No clubbing, no cyanosis. Peripheral pulses are intact. - Labs CBC & Chem 7: 08/01/24 05:33 08/01/24 05:33 Assessment and Plan Assessment: Acute alcohol intoxication Possible alcohol withdrawal seizure Postictal state History of alcoholism Acute alcoholic hepatitis Bipolar disorder Plan: The patient was seen and evaluated Stable and on room air teller head at the bedside Educated regarding smoking cessation Educated regarding alcohol cessation Remains in the CIWA protocol Psychiatric consult appreciated Plan is for inpatient psychiatric treatment I have personally seen and examined the patient, performed the documentation and the assessment and plan as written. Number of minutes spent on the visit: 10.
[2024-08-02] MEDS: ARIPiprazole 5 MG TAB PO SCH (15:45)
[2024-08-02] MEDS: ONDANSETRON 4 MG/2 ML VIAL IVP PRN (17:41)
[2024-08-02] MEDS: HALOPERIDOL LACTATE 5 MG/ML 1 ML VIAL IVP PRN (17:43)
[2024-08-02] MEDS: MIRTAZAPINE 15 MG TAB PO SCH (20:36)
[2024-08-03] MEDS: LORazepam 2 MG/ML INJ IM STA (11:10)
[2024-08-03] MEDS: HALOPERIDOL LACTATE 5 MG/ML 1 ML VIAL IM STA (11:10)
[2024-08-03] MEDS: diphenhydrAMINE 50 MG/ML 1 ML VIAL IM STA (11:10)
[2024-08-03] MEDS ORDERED: MIRTAZAPINE 15 MG TAB PO PRN (14:34)
--- NOTE | 2024-08-03 14:34 | P.PN ---
Progress Note - Text Progress Note Date: 08/03/24 Interval history: Patient was seen today for psychiatric follow-up regarding patient's bipolar d isorder and alcohol withdrawal. Patient took Abilify yesterday however refused at this morning, stating that his daughter was previously on it and did not do well according to patient's nurse. Patient appeared to be mildly drowsy today however continues to be fairly argumentative, minimizing his need to be in the hospital. Continues to focus mainly on discharge. Continues to be fairly impulsive was noted to be aggressive by nursing staff this morning and throwing things. Patient did receive a as needed Haldol earlier today. He apparently was calling the police to come and take him out of the hospital. He continues to be somewhat irritable, argumentative, poor impulse control. Very poor insight into his condition, and his need for treatment. Claims that he slept fairly last night. Denies any suicidal homicidal ideations intent or plan. Denies any auditory or visual hallucinations. MENTAL STATUS EXAM: General Appearance: Patient appears to be short in stature, stated age is alert, impulsive, demanding. Patient appears to have poor hygiene and grooming wearing hospital gown with improving eye contact. Behavior: Impulsive demanding Speech: Patient's speech is fluent and nonpressured. [place] Mood/Affect: Patient reports their mood is "fine", affect is congruent and constricted Suicidality/Homicidality: Patient denies having any suicidal or homicidal ideation intent or plan. Perceptions: Patient denies any visual hallucinations and denies any auditory hallucinations Though content/process: Irrational, illogical at times. Poor decision making. Focused on discharge, minimizing his need for hospitalization and his alcohol use Memory and concentration: AOX2-3, Cannot spell "WORLD" backwards, impulsive Judgment and insight: Poor/impulsive IMPRESSIONS: Bipolar disorder unspecified Alcohol use disorder severe dependence, currently in withdrawal Cannabis use disorder mild Nicotine dependence Nonadherence to psychiatric medication treatment PLAN: -At this time patient DOES meet criteria for inpatient psychiatric admission however as patient is currently withdrawing from etoh and not medically cleared will continue to follow along while he is on the medical floors. -Patient DOES NOT have decision making capacity at this time and is unable to reason through and communicate/appreciate the risks, benefits and alternatives to treatment. -Would recommend the following medication changes/additions: discontinue Remeron and Abilify. Replace with Seroquel 50 mg twice daily for mood stabilization/sleep. Continue with Librium scheduled with a plan to taper down for alcohol withdrawal. Haldol IVP as needed for agitation/aggression -CIWA protocol with PRN Ativan for alcohol withdrawal. Continue to monitor vital signs. -Continue 1:1 sitter for safety and elopement precautions -Cannot leave AMA at this time. Patient sister signed a petition, science writer completed a clinical certificate, both are in patient's chart. -Communicated plan to patient's nurse -patient is a [facility] reisdent there would need to be transferred out to a psychiatric bed in [facility] once he is stabilized medically and detox from etoh. -Will continue to follow along -Please contact with any questions.
[2024-08-03] MEDS: cloNIDine HCL 0.1 MG TAB PO PRN (16:35)
--- NOTE | 2024-08-03 16:47 | P.PN ---
Subjective Progress Note Date: 08/03/24 Hospital course: Patient is a 39-year-old man with a medical history of alcohol abuse disorder with dependence and history of severe alcohol withdrawal complicated by seizures and cardiac arrest presented for alcohol intoxication and impending withdrawal. In the emergency room, patient was afebrile, 165/108, heart rate 105, 95% on room air. CBC was unremarkable. Basic metabolic panel is unremarkable. Liver function tests remarkable for ALT of 601, AST of 394. Serum alcohol level was 68. Lipase was 61. Head/cervical spine CT showed no acute osseous abn ormalities. Face CT showed no acute fractures. EKG shows normal sinus rhythm, right axis deviation, S1Q3T3 pattern, good R wave progression. Patient initially admitted to medical ICU, and has since been transferred to stepdown unit. Continues to have severe alcohol withdrawals. Patient was also petitioned prior to coming to the hospital. Psychiatry has been consulted. Physical exam: Vital signs reviewed and stable. General: Nontoxic, no distress and appears stated age. Derm: Skin warm and dry, normal coloration for ethnicity. Head: Atraumatic, normocephalic and symmetric. Eyes: EOM's intact, no lid lag, and anicteric sclera Mouth: no lip lesions, mucus membranes moist Cardiovascular: regular rate and rhythm with normal S1S2, no murmur, positive posterior tibial pulses bilaterally, and cap refill < 2 seconds. Lungs: Respirations even, regular, and unlabored on room air. Lungs CTA bilaterally, no rhonchi, no rales, no wheezing, and no accessory muscle usage. Abdominal: soft, nontender to palpation, no guarding, no appreciable org anomegaly Ext: ROM intact. No gross muscle atrophy, no edema, no contractures Neuro: Speech clear, face symmetrical and CN II-XII grossly intact with no noted focal neuro deficits Psych: Alert and oriented to place. Aggressive behaviors with agitated and angry affect Assessment and Plan of Care: 08/03/2024 was called back to patient's room at 1045, as patient was agitated and aggressive and threatening to "throw it down" with nursing staff. Patient i n his room and standing in door stating that he is leaving this place and no one is going to stop him. Patient pulled out IV has been refusing medications. Multiple attempts were made at trying to verbally de-escalate the situation. Personally offered to place a new IV in patient so he can have some medication to help calm him down, however patient adamantly refusing and threatening to fight anyone that touches him. Patient states he is leaving and he is currently under petition and CERT. [place] police officers also arrived to bedside at this time as patient personally called police on hospital staff stating that he was being held against his will. Police officers and security at bedside. Orders placed for B-52 consisting of Haldol, Benadryl, and Ativan in attempts to medically calm patient. Patient refused IV access and therefore medications were given intramuscularly. IV access to be reobtained once patient calms down and is no longer aggressive towards staff as patient behaviors places safety risk to patient as well as staff Severe alcohol withdrawal with aggressive behaviors Seizure activity, patient presented with reports of witnessed seizure activity suspect alcohol withdrawal seizure Alcohol dependence Alcohol intoxication upon arrival Transaminitis -Continue monitoring of CIWA scores to continue and patient to be medicated with Ativan 0.5 mg every 4 hours as needed for CIWA score of 4-5, Ativan 1 mg every 4 hours for CIWA score of 6-7, Ativan 2 mg every 3 hours CIWA score of 8-9, and Ativan 2 mg every 2 hours forr CIWA score of 10 or greater. -Security and police at bedside, patient was given a B-52 consisting of Benadryl 50 mg IM, Haldol 5 mg IM, and Ativan 2 mg IM -Continue Librium 50 mg 3 times daily, monitor for sedation -Okay to continue clonidine 0.1 twice daily -On Haldol 5 mg IV every 6 hours as needed for severe agitation or acute psychosis -If continues use of Haldol, consider getting another EKG, QT not prolonged on admission -Patient has Petition and CERT on chart. -Thiamine 100 mg daily Transient headache, suspect complex migraine with reports of bilateral blurry v ision and headache with photophobia. Resolved. -Continue with symptomatic care and pain management. Tylenol 650 mg every 6 hours as needed for pain. Data and imaging reviewed: -Vital signs reviewed. Blood pressure 106/67, heart rate 78, respiratory rate 16, temp 98.1 F, and SpO2 of 96% on room air. -Labs were not drawn this morning as patient adamantly refused. Order placed for repeat labs tomorrow morning. DVT ppx: Subcu heparin Code status: Full code Anticipated discharge place: Pending clinical course Anticipated discharge time: Pending clinical course Patient was seen independently by Nurse Pracitioner. This document was prepared using [employer] dictation software. Please allow for errors in biometric fingerprinting technician, while rare they do occur. .Patient was seen independently by Madi Dave NP. I agree with the assessment and plan as above. Objective - Vital Signs Vital signs: Vital Signs Temp 98.1 F 08/03/24 00:00 Pulse 91 08/03/24 04:00 Resp 16 08/03/24 04:00 BP 118/67 08/03/24 04:00 Pulse Ox 97 08/03/24 04:00 FiO2 Intake & Output 08/02/24 08/03/24 08/03/24 18:59 06:59 18:59 Intake Total 1020 Balance 1020 Weight 88.3 kg Intake: Oral 1020 Other: Voiding Method Urinal Toilet Urinal - Labs CBC & Chem 7: 08/04/24 06:51 08/04/24 06:51
[2024-08-03] MEDS: QUEtiapine 50 MG TAB PO SCH (20:04)
[2024-08-03] MEDS ORDERED: PRAZOSIN 1 MG CAP PO SCH (21:00)
[2024-08-04 07:07] LABS: HGB 13.2 gm/dL (13.0-17.5); MCH 29.7 pg (25.0-35.0); MCHC 32.9 g/dL (31.0-37.0); MCV 90.4 fL (80.0-100.0); Mean Platelet Volume 7.2; Platelet Count 190 k/uL (150-450); RBC 4.42 m/uL (4.30-5.90); RDW 13.5 % (11.5-15.5); WBC 6.4 k/uL (3.8-10.6)
[2024-08-04 07:32] LABS: ALT 289 U/L (4-49); AST 120 U/L (17-59); African American GFR (CKD) >90 (>60 ml/min/1.73 sqM); Albumin 3.6 g/dL (3.5-5.0); Alkaline Phosphatase 110 U/L (38-126); Anion Gap 6 mmol/L; Blood Urea Nitrogen 6 mg/dL (9-20); Calcium 8.7 mg/dL (8.4-10.2); Carbon Dioxide 27 mmol/L (22-30); Chloride 104 mmol/L (98-107); Glucose 166 mg/dL (74-99); Magnesium 1.9 mg/dL (1.6-2.3); Non-African American GFR(CKD) >90 (>60 ml/min/1.73 sqM); Potassium 3.8 mmol/L (3.5-5.1); Sodium 137 mmol/L (137-145); Total Bilirubin 0.3 mg/dL (0.2-1.3); Total Protein 6.2 g/dL (6.3-8.2)
[2024-08-04 11:48] VITALS: BMI 29.5
--- NOTE | 2024-08-04 13:42 | P.PN ---
Subjective Progress Note Date: 08/04/24 Hospital Course: Patient is a 39-year-old man with a medical history of alcohol abuse disorder with dependence and history of severe alcohol withdrawal complicated by seizures and cardiac arrest presented for alcohol intoxication and impending withdrawal. In the emergency room, patient was afebrile, 165/108, heart rate 105, 95% on room air. CBC was unremarkable. Basic metabolic panel is unremarkable. Liver function tests remarkable for ALT of 601, AST of 394. Serum alcohol level was 68. Lipase was 61. Head/cervical spine CT showed no acute osseous abnormalities. Face CT showed no acute fractures. EKG shows normal sinus rhythm, right axis deviation, S1Q3T3 pattern, good R wave progression. Patient initially admitted to medical ICU, and has since been transferred to [facility]. Continues to have severe alcohol withdrawals. Patient was also petitioned prior to coming to the hospital. Psychiatry has been consulted. Psychiatry recommending inpatient psych. Patient is now medically optimized for discharge to inpatient psych. Pending further psych recommendations. Subjective: Patient seen and examined at bedside. No acute events overnight. Sitter at bedside. Pertinent positives and negatives as discussed above, a complete review of systems was performed and all other systems are negative. Vitals Signs Reviewed. General: Nontoxic, no distress, appears at stated age Derm: Warm, dry Head: Atraumatic, normocephalic, symmetric Eyes: EOMI, no lid lag, anicteric sclera Mouth: No lip lesion, mucus membranes moist Cardiovascular: S1S2 reg, no murmur Lungs: CTA bilateral, no rhonchi, no rales, no accessory muscle use Abdominal: Soft, nontender to palpation, no guarding, no appreciable organomegaly Ext: No gross muscle atrophy, no edema, no contractures Neuro: CN II-XI grossly intact, no focal neuro deficits Psych: Alert, oriented, appropriate affect Data Reviewed Today: Pertinent Labs: WBC 6.4, hemoglobin 13.2, creatinine 0.7, total bili 0.3, AST 120, ALT 289 Imaging: No new imaging Assessment and Plan: Severe alcohol withdrawal with aggressive behaviors Seizure activity, patient presented with reports of witnessed seizure activity suspect alcohol withdrawal seizure Alcohol dependence Alcohol intoxication upon arrival Transaminitis -Librium 30 4 times daily, decrease to 30 3 times daily -Continue clonidine 0.1 twice daily, Haldol 5 mg IV every 6 hours as needed for acute agitation -Discontinue oral Keppra -IV Ativan and p.o. Ativan as needed per CIWA score, monitor for sedation -Psychiatry also following, patient also on Seroquel 50 twice daily -Continue thiamine 100 mg daily, folic acid 1 mg daily -Patient is medically optimized for discharge to inpatient psych Transient headache, suspect complex migraine with reports of bilateral blurry vision and headache with photophobia. Resolved. -Continue with symptomatic care and pain management. Tylenol 650 mg every 6 hours as needed for pain. DVT ppx: Subcu heparin Code status: Full code Anticipated discharge place: Inpatient psych Anticipated discharge time: Pending bed availability Objective - Vital Signs Vital signs: Vital Signs Temp 98.2 F 08/04/24 08:00 Pulse 79 08/04/24 08:00 Resp 19 08/04/24 08:00 BP 138/95 08/04/24 08:00 Pulse Ox 97 08/04/24 08:00 FiO2 Intake & Output 08/03/24 08/04/24 08/04/24 18:59 06:59 18:59 Intake Total 360 Balance 360 Weight 88.3 kg Intake: Oral 360 Other: Voiding Method Toilet Toilet Urinal Urinal - Labs CBC & Chem 7: 08/04/24 06:51 08/04/24 06:51 Labs: Abnormal Lab Results - Last 24 Hours (Table) 08/04/24 Range/Units 06:51 BUN 6 L (9-20) mg/dL Glucose 166 H (74-99) mg/dL AST 120 H (17-59) U/L ALT 289 H (4-49) U/L Total Protein 6.2 L (6.3-8.2) g/dL
[2024-08-04 14:30] VITALS: BP 131/81; PULSE 74; RESP 20; TEMP 98
--- NOTE | 2024-08-04 14:49 | P.PN ---
Progress Note - Text Progress Note Date: 08/04/24 Interval history: Patient was seen today for psychiatric follow-up regarding patient's bipolar d isorder and alcohol withdrawal. Patient has been taking his Seroquel. He apparently slept last night. He did not need any more Haldol PRNs for agitation. Patient remains on Librium which was decreased furthermore by his medical doctor. Nurse claims that patient has been doing fairly well today, no issues. Patient was seen today agreeable to speak to copy writer alone in his room. He claims that he is doing much better, he appeared to be less irritable, more goal oriented and organized. He states that he would hope to go home today, claims that he wants to take his alcohol use seriously and wants to get into rehab. He claims that his is here with him. Denies any depression or anxiety at this time, claims that he is tolerating medications fairly well. States that he slept fairly last night denying any problems with his appetite. Denies any suicidal homicidal ideations intent or plan. Denies any auditory or visual hallucinations. Claims that he wants to live for his and also his health. MENTAL STATUS EXAM: General Appearance: Patient appears to be short in stature, stated age is alert, more cooperative today. Patient appears to have improving hygiene and grooming wearing hospital gown with improving eye contact. Behavior: Improving more cooperative today. Speech: Patient's speech is fluent and nonpressured Mood/Affect: Patient reports their mood is "fine", affect is congruent Suicidality/Homicidality: Patient denies having any suicidal or homicidal ideation intent or plan. Perceptions: Patient denies any visual hallucinations and denies any auditory hallucinations Though content/process: Logical, no paranoia or delusions. More future oriented today. Memory and concentration: AOX3, Can spell "WORLD" backwards Judgment and insight: Improving IMPRESSIONS: Bipolar disorder unspecified Alcohol use disorder severe dependence, currently in withdrawal Cannabis use disorder mild Nicotine dependence Nonadherence to psychiatric medication treatment PLAN: -At this time patient DOES NOT meet criteria for inpatient psychiatric admission as patient appears to be more stable today, future oriented, denying any depression or anxiety. States that he is not having any suicidal or homicidal ideations intent or plan denying any auditory visual hallucinations.. -Patient DOES NOT have decision making capacity at this time and is unable to reason through and communicate/appreciate the risks, benefits and alternatives to treatment. -Would recommend the following medication changes/additions: Continue with Seroquel 50 mg twice daily for mood stabilization/sleep. Continue with Librium scheduled with a plan to taper down for alcohol withdrawal. Haldol IVP as needed for agitation/aggression -[facility] protocol with PRN Ativan for alcohol withdrawal. Continue to monitor vital signs. -Director Of Early Childhood completed a negative clinical certificate for patient, as patient is improving significantly. this was placed in his chart -Communicated plan to patient's nurse and hospitalist -Will continue to follow along -Please contact with any questions.
--- NOTE | 2024-08-04 15:26 | P.DS ---
Providers Date of admission: 07/30/24 11:13 Expected date of discharge: 08/04/24 Attending physician: Geri Bradshaw MD Consults: 07/30/24 12:36 Consult Physician Urgent Consulting Provider: Joseluis Meléndez Consult Reason/Comments: ICU Management Do you want consulting provider notified?: Already Contacted 08/02/24 10:47 Consult Physician Urgent Consulting Provider: Russell Hoskins Consult Reason/Comments: petitioned 07/30/24 Do you want consulting provider notified?: Yes Primary care physician: Stated None Hospital Course: Patient was evaluated by psychiatry, does not need to be inpatient psychiatric admission. Patient recommended to stay inpatient for further weaning of Librium. He is out of his acute alcohol withdrawal. However patient left AMA. Plan - Discharge Summary New Discharge Prescriptions: No Action No Known Home Medications Discharge Medication List No Known Home Medications 07/30/24 [History] Follow up Appointment(s)/Referral(s): None,Stated [Primary Care Provider] - 1-2 days Activity/Diet/Wound Care/Special Instructions: ACCESS Call Center The [facility] manages the [facility] Call Center to continue providing quality integrated healthcare to its members. The [facility] Call Center is managed by professional staff with decades of experience in mental health crisis and customer service. Call Center staff are trained in several behavioral health and disability-related concerns. The [facility] Call Center also has trained clinicians who can assist people who may be experiencing crisis related to substance use disorder. Hours for non-emergent calls are from 8am-8pm Wednesday through Wednesday. Call Center staff will complete a brief screening with the person and if needed, a Clinician will contact the individual the next business day to complete the assessment. After 8pm and on weekends, the following services will be provided: Warm transfer to the crisis line Dispatch of Childrens Crisis Teams from Emergency Departments Hospital discharge follow-up appointments A mental health clinician will be available for JOAN screening only If you have any questions or concerns regarding the [facility] Call Center, please send an email to: [email or web address]. Also, the [facility] Helpline is also always available 17/05 at [phone]. Discharge/Stand Alone Forms: AA Meetings Dist 22 [address] 24 - [facility], Who Do I Call?, Outpatient Counseling, Inp Substance Abuse Facilities Discharge Disposition: LEFT AGAINST MEDICAL ADVICE
== END 2024-08-04 15:16 | disposition left against medical advice (07) | DRG 770 ==
LOC: EC 08:26 → 3SCARD 11:13 → 2SICU 12:38 → 3SCARD 08-01 16:39 → 5NMEDONC 08-04 05:47
PROVIDERS: ADMIT Internal Medicine; ATTEND Internal Medicine
DX: F10.239 Alcohol dependence with withdrawal, unspecified (principal); F10.229 Alcohol dependence with intoxication, unspecified; R45.1 Restlessness and agitation; K70.10 Alcoholic hepatitis without ascites; Y90.3 Blood alcohol level of 60-79 mg/100 ml; F12.10 Cannabis abuse, uncomplicated; F17.290 Nicotine dependence, other tobacco product, uncomplicated; F31.9 Bipolar disorder, unspecified; F41.9 Anxiety disorder, unspecified; G40.909 Epilepsy, unspecified, not intractable, without status epilepticus; I10 Essential (primary) hypertension; I25.2 Old myocardial infarction; Z53.29 Procedure and treatment not carried out because of patient's decision for other reasons; Z86.74 Personal history of sudden cardiac arrest; Z91.199 Patient's noncompliance with other medical treatment and regimen due to unspecified reason; Z71.3 Dietary counseling and surveillance; Z65.3 Problems related to other legal circumstances
CPT/HCPCS: 36415; 70450; 70486; 71045; 72125; 80048; 80053; 80320; 83690; 83735; 85025; 85027; 93005; 96361; 96365; 96366; 96375; 96376; 99285